=== PATIENT | female | born 1970 | race Caucasian/White ===

== ENCOUNTER → 2019-02-24 | Day surgery (SDC) | payer BC, OTHER ==
[~2019-02-24] MED LIST: IV RINGERS,LACTATED 1000ML 1,000 ML IV ONE; LIDOCAINE 2% PF 5 ML VIAL. ONE; MELO15TA23 PO; PROPOFOL 40 ML IV ONE
--- NOTE | 2019-02-24 09:35 | PREOP HP ---
DATE OF SERVICE: 02/24/2019 PREOPERATIVE HISTORY AND PHYSICAL REQUESTING PHYSICIAN: Leonela Schulz M.D. PRIMARY CARE PHYSICIAN: YUE Huizar REASON FOR PROCEDURE: Followup diverticulitis. HISTORY OF PRESENT ILLNESS: This is a 48-year-old female who had an episode of diverticulitis on 01/2018. She is here for followup colonoscopy. ALLERGIES: No known drug allergies. PAST MEDICAL HISTORY: 1. Arthritis. 2. Diverticulitis. 3. Breast cancer. FAMILY MEDICAL HISTORY: Diabetes. SOCIAL HISTORY: She denies tobacco, alcohol or IV drug abuse. MEDICATIONS: MAR reviewed. REVIEW OF SYSTEMS: A 13-point review of systems was done and is positive as per HPI and otherwise negative. PHYSICAL EXAMINATION: VITAL SIGNS: She is afebrile and her vital signs are stable. GENERAL: She is a well-developed, well-nourished female, in no apparent distress. HEENT: Oropharynx is clear. CARDIOVASCULAR: S1, S2. LUNGS: Clear. ABDOMEN: Active bowel sounds, soft, nontender, nondistended. EXTREMITIES: No edema. NEUROLOGIC: Awake, alert and oriented x 3. ASSESSMENT AND PLAN: History of diverticulitis. Proceed with colonoscopy for further evaluation. The risks and benefits including bleeding, perforation, non-diagnosis and sedation were explained. She has agreed to proceed. RAMON GILMORE MD DR: ELLEN/mary ann JOB#: [id number] / [id number]
[2019-02-24 09:42] VITALS: BP 115/67
== END ==
LOC: ENDOS 07:51
PROVIDERS: ATTEND Internal Medicine Gastroenterology
DX: Z09 Encounter for follow-up examination after completed treatment for conditions other than malignant neoplasm (principal); K57.30 Diverticulosis of large intestine without perforation or abscess without bleeding; K64.0 First degree hemorrhoids; Z87.39 Personal history of other diseases of the musculoskeletal system and connective tissue; Z85.3 Personal history of malignant neoplasm of breast
CPT/HCPCS: 45378; 81025; J2001; J2704

== ENCOUNTER → 2020-06-11 | Outpatient (CLI) | payer BC, OTHER ==
[2019-02-24 09:42] VITALS: BP 115/67
[~2020-06-11] MED LIST changes: -IV RINGERS,LACTATED 1000ML 1,000 ML IV ONE; -LIDOCAINE 2% PF 5 ML VIAL. ONE; -PROPOFOL 40 ML IV ONE
--- NOTE | 2020-06-11 15:57 | KCIC ---
MR CERVICAL SPINE WO History:Reason: NECK PAIN / Spl. Instructions: / History: Neck pain and RUE pain and numbness progre ssing for 2 yrs. NKI. Technique: Multiplanar, multi sequential noncontrast MR imaging was performed of the cervical spine. Comparison: None Findings: Straightening of normal cervical lordosis. Normal vertebral body height. No fracture. No pathologic signal abnormality within the cervical spinal cord. C2-C3: No canal or neuroforaminal narrowing. Facet arthropathy. C3-C4: Minimal disc bulge. No canal or neuroforaminal narrowing. Facet arthropathy. C4-C5: Small disc bulge. No canal narrowing. Left uncovertebral and bilateral facet arthropathy. Mil d left neuroforaminal narrowing. No right neuroforaminal narrowing. C5-C6: Small bulge. No canal narrowing. Left uncovertebral and bilateral facet arthropathy. Mild lef t neuroforaminal narrowing. No right neuroforaminal narrowing. C6-C7: No canal or neuroforaminal narrowing. Facet arthropathy. C7-T1: No canal or neuroforaminal narrowing. Facet arthropathy. T2-T3: Central disc protrusion. No canal or neuroforaminal narrowing. Impression: 1. Mild multilevel cervical and upper thoracic spondylosis. 2. Mild left C4-C5 and C5-C6 neuroforaminal narrowing. Electronically signed by: James Sabillon DO (06/11/2020 3:54 PM) [id number]
== END ==
LOC: KCIC MRI 14:31
PROVIDERS: ATTEND Physician Assistant
DX: M47.813 Spondylosis without myelopathy or radiculopathy, cervicothoracic region (principal); M48.02 Spinal stenosis, cervical region; M12.88 Other specific arthropathies, not elsewhere classified, other specified site
CPT/HCPCS: 72141

== ENCOUNTER → 2021-10-01 | Outpatient (CLI) | payer BC, OTHER ==
[2019-02-24 09:42] VITALS: BP 115/67
[~2021-10-01] MED LIST changes: +BARIUM SULFATE 340 GM SUSPENSION. PO ONE; +BARIUM SULFATE 60% 355 ML SUSP PO ONE; +BARIUM SULFATE 700 MG TABLET PO ONE; +SIMETHICONE/SOD BICARB/CITRIC ACID PACKET. PO ONE
--- NOTE | 2021-10-01 13:41 | RAD ---
DG BARIUM SWALLOW Reason for study: Dysphagia. Comparison studies: None. Technique: Esophagram was performed utilizing double contrast upright examination and single contrast prone examination. Fluoroscopic Time: 1.8 minutes Number of Fluoroscopic Images: 58 Findings: The swallowing apparatus function normally. No aspiration or penetration identified. No pharyngeal le sions. No esophageal mucosal abnormalities. Normal esophageal motility. No esophageal diverticulum or hiatal hernia. Fundus of the stomach is unremarkable. No esophageal reflux despite provocative maneuvers. A barium tablet passed to the gastroesophageal junction without difficulty but persistent after sever al small sips of water. No obstruction at this location is identified on solid column technique. IMPRESSION: Normal esophageal motility and morphology. Persistence of barium tablet at the gastroesophageal junction likely to be due to adhering to the muc sara in the setting of limited water intake with swallowing given lack of stricture identified on othe r techniques. This is suspected to be of no particular significance. Electronically signed by: Monroe Kelly MD (10/01/2021 1:38 PM) [id number]
== END ==
LOC: RAD 08:28
PROVIDERS: ATTEND Internal Medicine Gastroenterology
DX: R13.10 Dysphagia, unspecified (principal)
CPT/HCPCS: 74220